=== PATIENT | female | born 1960 | race African-American/Black ===

== ENCOUNTER 2016-08-13 16:35 | Inpatient (IN) | payer MEDICAID, OTHER ==
[~2016-08-13] VITALS: Ht 157.5 cm; Wt 48.1 kg
[2016-08-13] MEDS ORDERED: MORPHINE SULFATE 4 MG/ML CPJ (NOT FOR IM USE) IV STA (16:58)
[2016-08-13] MEDS ORDERED: ONDANSETRON HCL 4MG/2ML VIAL IV STA (16:58)
[2016-08-13] MEDS ORDERED: SODIUM CHLORIDE 0.9% 1,000 ML IV ONE (16:58)
[2016-08-13 17:51] LABS: BASOPHILS % 0.8 % (0.0-2.0); EOSINOPHILS % 0.4 % (0.0-5.0); HEMOGLOBIN. 12.3 g/dL (12.0-16.0); LYMPHOCYTES % 36.9 % (20.0-50.0); MEAN CORPUSCULAR HEMOGLOBIN 30.6 pg (28.0-32.0); MEAN CORPUSCULAR HGB CONC 33.3 g/dL (31.0-37.0); MEAN CORPUSCULAR VOLUME 91.8 fL (81.0-99.0); MEAN PLATELET VOLUME 8.4 fl (7.4-10.4); MONOCYTES % 6.3 % (2.0-8.0); NEUTROPHILS % 55.6 % (40.0-76.0); PLATELET 235 x1000/uL (130-400); RED BLOOD CELL COUNT 4.03 mill/uL (4.2-5.4); WHITE BLOOD COUNT 5.4 x1000/uL (4.5-11.0)
[2016-08-13 17:57] LABS: INR 1.1; PROTHROMBIN TIME 11.6 sec
[2016-08-13 18:03] LABS: AMMONIA 26 uMol/L (<32); INDEX HEMOLYSI 1 (1-3)
[2016-08-13 18:07] LABS: ALANINE AMINOTRANSFERASE 45 IU/L (13-61); ALBUMIN 3.8 g/dL (3.4-5.0); ANION GAP 17; CALCIUM 8.9 mg/dL (8.5-10.1); CARBON DIOXIDE 22 mEq/L (21-32); CHLORIDE 107 mEq/L (98-107); CREATINE KINASE 512 IU/L (26-192); ETHANOL BLOOD 73 mg/dL; INDEX HEMOLYSI 1 (1-3); INDEX ICTERIC 1 (1-4); INDEX LIPEMIC 1 (1-3); NT PRO B-TYPE NATRIURETIC PEP 53 pg/mL (5-125); TROPONIN I < 0.02 ng/mL (0.00-0.04); UREA NITROGEN BLOOD 16 mg/dL (7-21); eGFR > 60 mL/min (>60)
[2016-08-13] MEDS ORDERED: ASPIRIN 81MG EC TABLET PO ONE (19:00)
[2016-08-13 19:38] LABS: CLARITY URINE CLEAR (CLEAR); COLOR URINE YELLOW (YELLOW); GLUCOSE URINE NEGATIVE (NEGATIVE); KETONES URINE NEGATIVE (NEGATIVE); LEUKOCYTE ESTERASE URINE NEGATIVE (NEGATIVE); NITRITE URINE NEGATIVE (NEGATIVE); OCCULT BLOOD URINE NEGATIVE (NEGATIVE); PROTEIN URINE NEGATIVE (NEGATIVE); SPECIFIC GRAVITY URINE 1.017 (1.005-1.030); UROBILINOGEN URINE 0.2 E.U./dL (0.2-1.0)
[2016-08-13 19:51] LABS: *AMPHETAMINES SCREEN URINE NEGATIVE (NEGATIVE); *BARBITURATES SCREEN URINE NEGATIVE (NEGATIVE); *BENZODIAZEPINES SCREEN URINE NEGATIVE (NEGATIVE); *COCAINE SCREEN URINE NEGATIVE (NEGATIVE); CANNABINOID URINE SCREEN PRESUMTIVE POSITIVE (NEGATIVE); ECSTASY MDMA SCREEN URINE NEGATIVE (NEGATIVE); METHADONE URINE SCREEN NEGATIVE (NEGATIVE); OPIATES URINE SCREEN PRESUMTIVE POSITIVE (NEGATIVE); PHENCYCLIDINE URINE SCREEN NEGATIVE (NEGATIVE)
[2016-08-13 21:00] VITALS: BP 133/75
[2016-08-13 22:00] VITALS: BP 133/75
[2016-08-13] MEDS ORDERED: ZOLPIDEM TARTRATE 5MG TABLET PO PRN (22:00)
[2016-08-13] MEDS ORDERED: BENA20TA3 PO (22:53)
[2016-08-13] MEDS ORDERED: CLOP75TA33 PO (22:53)
[2016-08-13] MEDS ORDERED: PANT40TA4 PO (22:53)
[2016-08-13] MEDS ORDERED: ASPI-1035 PO (22:53)
[2016-08-14] VITALS: BP 102/68
[2016-08-14 04:00] VITALS: BP 125/86
[2016-08-14 06:12] LABS: BASOPHILS % 0.6 % (0.0-2.0); EOSINOPHILS % 0.6 % (0.0-5.0); HEMATOCRIT. 33.5 % (36.0-48.0); HEMOGLOBIN. 11.1 g/dL (12.0-16.0); LYMPHOCYTES % 51.7 % (20.0-50.0); MEAN CORPUSCULAR HEMOGLOBIN 30.6 pg (28.0-32.0); MEAN PLATELET VOLUME 9.5 fl (7.4-10.4); MONOCYTES % 10.4 % (2.0-8.0); NEUTROPHILS % 36.7 % (40.0-76.0); PLATELET 201 x1000/uL (130-400); RED BLOOD CELL COUNT 3.61 mill/uL (4.2-5.4); RED CELL DISTRIBUTION WIDTH 12.9 % (11.6-14.6); WHITE BLOOD COUNT 4.1 x1000/uL (4.5-11.0)
[2016-08-14] MEDS: PANTOPRAZOLE 40MG DR TABLET PO SCH (06:25)
[2016-08-14 06:42] LABS: ANION GAP 11; CALCIUM 8.4 mg/dL (8.5-10.1); CARBON DIOXIDE 25 mEq/L (21-32); CHLORIDE 109 mEq/L (98-107); INDEX HEMOLYSI 1 (1-3); INDEX ICTERIC 1 (1-4); INDEX LIPEMIC 1 (1-3); TRIGLYCERIDE 109 mg/dL (0-150); UREA NITROGEN BLOOD 15 mg/dL (7-21); eGFR > 60 mL/min (>60)
[2016-08-14 06:45] LABS: HDL CHOLESTEROL 110 mg/dL (40-59); LDL CHOLESTEROL 51 mg/dL (5-100)
[2016-08-14 08:00] VITALS: BP 142/92
[2016-08-14] MEDS: CLOPIDOGREL 75MG TABLET PO SCH (09:56)
[2016-08-14] MEDS: BENAZEPRIL 10MG TABLET PO SCH (09:57)
[2016-08-14] MEDS: ASPIRIN 81MG EC TABLET PO SCH (09:57)
[2016-08-14] MEDS ORDERED: CLONIDINE 0.2MG TABLET PO PRN (11:15)
[2016-08-14 12:00] VITALS: BP 127/90
[2016-08-14] MEDS: AMLODIPINE 2.5MG TABLET PO SCH ×2 (12:46→16:48)
[2016-08-14] MEDS ORDERED: CLONIDINE 0.1MG TABLET PO PRN (15:20)
[2016-08-14 16:00] VITALS: BP 133/90
[2016-08-14 20:00] VITALS: BP 101/64
[2016-08-14] MEDS: HYDROCODONE/ACETAMINOPHEN 5/325MG TABLET PO PRN (20:50)
[2016-08-14] MEDS: ZOLPIDEM TARTRATE 5MG TABLET PO PRN (23:03)
[2016-08-15] VITALS: BP 116/57
[2016-08-15 04:00] VITALS: BP 111/70
[2016-08-15] MEDS: PANTOPRAZOLE 40MG DR TABLET PO SCH (06:11)
[2016-08-15 06:46] LABS: BASOPHILS % 0.4 % (0.0-2.0); EOSINOPHILS % 0.7 % (0.0-5.0); HEMATOCRIT. 35.9 % (36.0-48.0); HEMOGLOBIN. 11.9 g/dL (12.0-16.0); LYMPHOCYTES % 56.1 % (20.0-50.0); MEAN CORPUSCULAR HEMOGLOBIN 30.7 pg (28.0-32.0); MEAN CORPUSCULAR HGB CONC 33.1 g/dL (31.0-37.0); MEAN CORPUSCULAR VOLUME 92.7 fL (81.0-99.0); MEAN PLATELET VOLUME 9.2 fl (7.4-10.4); MONOCYTES % 10.8 % (2.0-8.0); PLATELET 201 x1000/uL (130-400); RED BLOOD CELL COUNT 3.87 mill/uL (4.2-5.4); WHITE BLOOD COUNT 3.4 x1000/uL (4.5-11.0)
[2016-08-15] MEDS: HYDROCODONE/ACETAMINOPHEN 5/325MG TABLET PO PRN ×4 (07:10→23:26)
[2016-08-15 08:00] VITALS: BP 143/80
[2016-08-15] MEDS: ASPIRIN 81MG EC TABLET PO SCH (08:50)
[2016-08-15] MEDS: BENAZEPRIL 10MG TABLET PO SCH (08:50)
[2016-08-15] MEDS: CLOPIDOGREL 75MG TABLET PO SCH (08:50)
[2016-08-15] MEDS: AMLODIPINE 2.5MG TABLET PO SCH ×2 (08:51→17:21)
[2016-08-15 09:26] LABS: ALANINE AMINOTRANSFERASE 42 IU/L (13-61); ALBUMIN 3.3 g/dL (3.4-5.0); ANION GAP 12; CALCIUM 8.6 mg/dL (8.5-10.1); CARBON DIOXIDE 28 mEq/L (21-32); CHLORIDE 106 mEq/L (98-107); CREATINE KINASE 263 IU/L (26-192); CREATINE KINASE MB FRACTION 0.7 ng/mL (0.5-3.6); INDEX HEMOLYSI 1 (1-3); INDEX ICTERIC 1 (1-4); INDEX LIPEMIC 1 (1-3); NT PRO B-TYPE NATRIURETIC PEP 317 pg/mL (5-125); TROPONIN I < 0.02 ng/mL (0.00-0.04); UREA NITROGEN BLOOD 10 mg/dL (7-21); eGFR > 60 mL/min (>60)
[2016-08-15] MEDS: NICOTINE 14MG PATCH TD SCH (13:59)
[2016-08-15 16:00] VITALS: BP 125/85
[2016-08-15 20:00] VITALS: BP 134/79
[2016-08-15] MEDS: ZOLPIDEM TARTRATE 5MG TABLET PO PRN (23:26)
[2016-08-16] VITALS: BP 120/87
[2016-08-16 04:00] VITALS: BP 104/68
[2016-08-16 05:48] LABS: CALCIUM 8.9 mg/dL (8.5-10.1); CARBON DIOXIDE 29 mEq/L (21-32); INDEX HEMOLYSI 1 (1-3); INDEX ICTERIC 1 (1-4); INDEX LIPEMIC 1 (1-3); UREA NITROGEN BLOOD 7 mg/dL (7-21); eGFR > 60 mL/min (>60)
[2016-08-16 05:57] LABS: BASOPHILS % 0.4 % (0.0-2.0); EOSINOPHILS % 0.8 % (0.0-5.0); HEMATOCRIT. 33.3 % (36.0-48.0); HEMOGLOBIN. 11.1 g/dL (12.0-16.0); LYMPHOCYTES % 45.8 % (20.0-50.0); MEAN CORPUSCULAR HEMOGLOBIN 30.8 pg (28.0-32.0); MEAN CORPUSCULAR HGB CONC 33.3 g/dL (31.0-37.0); MEAN CORPUSCULAR VOLUME 92.6 fL (81.0-99.0); MEAN PLATELET VOLUME 9.4 fl (7.4-10.4); MONOCYTES % 14.3 % (2.0-8.0); NEUTROPHILS % 38.7 % (40.0-76.0); PLATELET 194 x1000/uL (130-400); RED CELL DISTRIBUTION WIDTH 12.6 % (11.6-14.6)
[2016-08-16 06:04] LABS: ANION GAP 11; CHLORIDE 108 mEq/L (98-107)
[2016-08-16 08:00] VITALS: BP 119/71
[2016-08-16] MEDS: CLOPIDOGREL 75MG TABLET PO SCH (08:45)
[2016-08-16] MEDS: NICOTINE 14MG PATCH TD SCH (08:45)
[2016-08-16] MEDS: AMLODIPINE 2.5MG TABLET PO SCH ×2 (08:45→16:57)
[2016-08-16] MEDS: FAMOTIDINE 20MG TABLET PO SCH ×2 (08:46→16:56)
[2016-08-16] MEDS: ASPIRIN 81MG EC TABLET PO SCH (08:46)
[2016-08-16] MEDS: BENAZEPRIL 10MG TABLET PO SCH (08:49)
[2016-08-16 12:00] VITALS: BP 131/81
[2016-08-16 16:00] VITALS: BP 140/91
[2016-08-16 20:00] VITALS: BP 124/68
[2016-08-16] MEDS: ZOLPIDEM TARTRATE 5MG TABLET PO PRN (22:19)
[2016-08-16] MEDS: HYDROCODONE/ACETAMINOPHEN 5/325MG TABLET PO PRN (22:20)
[2016-08-17] VITALS: BP 107/63
[2016-08-17 04:00] VITALS: BP 112/52
[2016-08-17 06:46] LABS: BASOPHILS % 0.5 % (0.0-2.0); EOSINOPHILS % 0.7 % (0.0-5.0); HEMATOCRIT. 36.1 % (36.0-48.0); LYMPHOCYTES % 52.1 % (20.0-50.0); MEAN CORPUSCULAR HEMOGLOBIN 30.9 pg (28.0-32.0); MEAN CORPUSCULAR HGB CONC 33.2 g/dL (31.0-37.0); MEAN PLATELET VOLUME 9.4 fl (7.4-10.4); MONOCYTES % 11.9 % (2.0-8.0); NEUTROPHILS % 34.8 % (40.0-76.0); PLATELET 211 x1000/uL (130-400); RED BLOOD CELL COUNT 3.88 mill/uL (4.2-5.4); RED CELL DISTRIBUTION WIDTH 12.7 % (11.6-14.6); WHITE BLOOD COUNT 3.2 x1000/uL (4.5-11.0)
[2016-08-17 07:36] LABS: ANION GAP 11; CALCIUM 9.3 mg/dL (8.5-10.1); CARBON DIOXIDE 30 mEq/L (21-32); CHLORIDE 106 mEq/L (98-107); INDEX HEMOLYSI 1 (1-3); INDEX ICTERIC 1 (1-4); INDEX LIPEMIC 1 (1-3); UREA NITROGEN BLOOD 7 mg/dL (7-21); eGFR > 60 mL/min (>60)
[2016-08-17 08:00] VITALS: BP 118/75
[2016-08-17] MEDS: BENAZEPRIL 10MG TABLET PO SCH (09:00)
[2016-08-17] MEDS: CLOPIDOGREL 75MG TABLET PO SCH (09:00)
[2016-08-17] MEDS: AMLODIPINE 2.5MG TABLET PO SCH ×2 (09:00→16:54)
[2016-08-17] MEDS: FAMOTIDINE 20MG TABLET PO SCH ×2 (09:00→16:54)
[2016-08-17] MEDS ORDERED: TETRACAINE/BENZOCAINE/BUTAMBEN 20 GM SPRAY MM ONE (10:22)
[2016-08-17] MEDS ORDERED: LIDOCAINE HCL 2% JELLY 5ML ONE (10:22)
[2016-08-17] MEDS ORDERED: FENTANYL CITRATE/PF 50MCG/ML 2ML VIAL ONE (10:23)
[2016-08-17] MEDS ORDERED: MIDAZOLAM HCL 5 MG/5 ML VIAL ONE (10:24)
[2016-08-17 12:00] VITALS: BP 120/75
[2016-08-17] MEDS: NICOTINE 14MG PATCH TD SCH (12:04)
[2016-08-17 16:00] VITALS: BP 117/83
[2016-08-17 20:00] VITALS: BP 125/88
[2016-08-17] MEDS: ZOLPIDEM TARTRATE 5MG TABLET PO PRN (22:23)
[2016-08-18] VITALS: BP 109/72
[2016-08-18 04:00] VITALS: BP 127/80
[2016-08-18 08:00] VITALS: BP 122/72
[2016-08-18] MEDS: BENAZEPRIL 10MG TABLET PO SCH (09:00)
[2016-08-18] MEDS: FAMOTIDINE 20MG TABLET PO SCH (09:55)
[2016-08-18] MEDS: NICOTINE 14MG PATCH TD SCH (09:56)
[2016-08-18] MEDS: AMLODIPINE 2.5MG TABLET PO SCH (09:56)
[2016-08-18 12:00] VITALS: BP 116/77
[2016-08-18] MEDS ORDERED: AMLO2.5T45 PO (14:00)
[2016-08-18] MEDS ORDERED: FAMO20TA8 PO (14:00)
[2016-08-18] MEDS ORDERED: LOT10 PO (14:00)
[2016-08-18 14:19] VITALS: BP 127/88
== END 2016-08-18 14:50 | disposition home or self-care (01) | DRG 207 ==
LOC: ER 16:36 → 8WST 19:48
PROVIDERS: ADMIT Internal Medicine; ATTEND Internal Medicine
DX: D15.1 Benign neoplasm of heart (principal); I69.354 Hemiplegia and hemiparesis following cerebral infarction affecting left non-dominant side; I11.9 Hypertensive heart disease without heart failure; D64.9 Anemia, unspecified; E78.00 Pure hypercholesterolemia, unspecified; R63.4 Abnormal weight loss; F17.200 Nicotine dependence, unspecified, uncomplicated; F12.10 Cannabis abuse, uncomplicated; E78.5 Hyperlipidemia, unspecified; R91.8 Other nonspecific abnormal finding of lung field; F10.10 Alcohol abuse, uncomplicated; Z82.49 Family history of ischemic heart disease and other diseases of the circulatory system; Z68.1 Body mass index [BMI] 19.9 or less, adult; Z83.3 Family history of diabetes mellitus
CPT/HCPCS: 36415; 70450; 70551; 71010; 71250; 80048; 80053; 80061; 80305; 81003; 82140; 82550; 82553; 83735; 83880; 84443; 84484; 85025; 85379; 85610; 93005; 93306; 93312; 93880; 96374; 96375; 99285; G0482; J2250; J2270; J2405; J3010; J7030